=== PATIENT | male | born 1975 | race Two or more races ===

== ENCOUNTER 2020-10-20 17:38 | Inpatient (IN) | payer OTHER ==
[~2020-10-20] VITALS: Ht 170.2 cm; Wt 70.9 kg
--- NOTE | 2020-10-20 17:57 | NUR ---
PT PLACED ON ALL ROOM MONITORING. 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 PULSE OX 90% ON 2LITERS VIA NC, INCREASED TO 3LITERS. RA SAT PER [facility] 88%. PT REPORTS OF COUGH AND ABD PAIN. PER PAPERWORK FROM JACK, PT WITH SCROTAL EDEMA AND TENDERNSS, MALODOROUS LESIONS/EXCORCIATIONS. LAW ENFORCEMENT, THREE OFFICERS AT BS. OFFICERS TO REMOVE SHACKLES TO ALLOW GOWN AND ABILITY TO PROVIDE UA.
[2020-10-20] MEDS ORDERED: SODIUM CHLORIDE 0.9% 1,000ML IVBOLUS ONE ×2 (18:30→20:30)
--- NOTE | 2020-10-20 18:39 | NUR ---
PT STATES TO ERP, HERE FOR TROUBLE BREATHING. ERP NOTIFIED OF OTHER REPORTED SX. 2ND IV BY ED MEDIC, BC X 1 DRAWN WITH START. 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 CALL LIGHT WITHIN REACH.
--- NOTE | 2020-10-20 18:45 | NUR ---
PINK SEPSIS SHEET STARTED.
[2020-10-20 18:51] LABS: BASOPHILS % (AUTO) 0 % (0-1); EOSINOPHILS % (AUTO) 0 % (1-7); LYMPHOCYTES % (AUTO) 6 % (22-44); MEAN CORPUSCULAR HEMOGLOBIN 29.4 pg (27.5-34.5); MEAN CORPUSCULAR HGB CONC 33.6 g/dL (33.2-36.2); MEAN PLATELET VOLUME 8.6 fL (7.4-10.4); MONOCYTES % (AUTO) 9 % (2-9); NEUTROPHILS % (AUTO) 85 % (42-75); PLATELET COUNT 365 x10^3/uL (130-400); RED BLOOD COUNT 3.62 x10^6/uL (4.38-5.82); RED CELL DISTRIBUTION WIDTH 14.3 % (9.4-14.8)
[2020-10-20] MEDS ORDERED: SODIUM CHLORIDE FLUSH 10ML SYR IVF ONE (19:00)
[2020-10-20 19:03] LABS: ALANINE AMINOTRANSFERASE 16 U/L (12-78); ALBUMIN 1.6 g/dL (3.4-5.0); ANION GAP 8 mmol/L (5-15); CALCIUM 7.4 mg/dL (8.5-10.1); CHLORIDE 104 mmol/L (98-107); CREATININE 1.17 mg/dL (0.7-1.3)
[2020-10-20 19:05] LABS: ALKALINE PHOSPHATASE 18 U/L (45-117); BILIRUBIN,TOTAL 0.6 mg/dL (0.2-1.0); TOTAL PROTEIN 7.8 g/dL (6.4-8.2)
--- NOTE | 2020-10-20 19:14 | NUR ---
REPORT TO ALFONSO, TRANSFER OF CARE AT THIS TIME.
[2020-10-20] MEDS ORDERED: AZITHROMYCIN 500 MG in SODIUM CHLORIDE 0.9% 250 ML IV ONE (20:00)
[2020-10-20] MEDS ORDERED: CEFTRIAXONE 2 GM in DEXTROSE 5% 50 ML IVPB ONE (20:00)
[2020-10-20] MEDS ORDERED: DOXYCYCLINE 100 MG in DEXTROSE 5% 250 ML IV ONE (20:30)
[2020-10-20] MEDS ORDERED: OXYcodone IR 5MG TABLET PO PRN (22:00)
[2020-10-20] MEDS ORDERED: VANCOMYCIN PER PHARMACY MC PRN (22:00)
[2020-10-20] MEDS ORDERED: ACETAMINOPHEN 325 MG TABLET PO PRN (22:00)
[2020-10-20] MEDS ORDERED: hydrALAzine 20 MG/ML, 1ML IVPush PRN (22:00)
[2020-10-20] MEDS ORDERED: MELATONIN 5 MG TABLET PO PRN (22:00)
[2020-10-20] MEDS ORDERED: ONDANSETRON 2MG/ML, 2ML IVPush PRN (22:00)
[2020-10-20] MEDS ORDERED: TEMAZEPAM 15 MG CAPSULE PO PRN (22:00)
[2020-10-20] MEDS ORDERED: BISACODYL 10 MG SUPP PR PRN (22:00)
[2020-10-20] MEDS ORDERED: LORazepam 2 MG/ML, 1ML IVPush PRN (22:00)
[2020-10-20] MEDS ORDERED: MEROPENEM IV SCH (22:00)
[2020-10-20] MEDS ORDERED: POLYETHYLENE GLYCOL 17 GM PACKET PO PRN (22:00)
[2020-10-20] MEDS ORDERED: DOCUSATE 100 MG CAPSULE PO PRN (22:00)
[2020-10-20] MEDS ORDERED: VANCOMYCIN 1,600 MG in SODIUM CHLORIDE 0.9% 250 ML IV ONE (22:30)
[2020-10-20] MEDS ORDERED: PHARMACOKINETIC MONITORING MC PRN (22:30)
[2020-10-20] MEDS ORDERED: PHARMACOKINETIC CONSULTATION MC ONE (22:30)
[2020-10-20 22:35] VITALS: BP 92/61
[2020-10-20] MEDS: SODIUM CHLORIDE 0.9% 1,000 ML IV SCH (22:58)
[2020-10-20] MEDS: ENOXAPARIN 40 MG/0.4 ML SQ SCH (22:59)
[2020-10-20 23:37] LABS: TROPONIN I < 0.015 ng/mL (0.000-0.045)
[2020-10-21] MEDS: MEROPENEM 1 GM in SODIUM CHLORIDE 0.9% 100 ML IV SCH ×4 (00:17→23:47)
[2020-10-21] MEDS: DEXAMETHASONE 4 MG/ML, 1ML IVPush SCH ×2 (00:39→08:01)
[2020-10-21 02:07] LABS: AMPHETAMINE SCREEN, URINE Negative (Negative); BARBITURATE SCREEN, URINE Negative (Negative); BENZODIAZEPINE SCREEN, URINE Negative (Negative); CANNABINOID SCREEN, URINE Negative (Negative); COCAINE SCREEN, URINE Negative (Negative); METHADONE SCREEN, URINE Negative (Negative); OPIATE SCREEN, URINE Negative (Negative)
[2020-10-21 02:09] LABS: MICROSCOPIC INDICATED
[2020-10-21 03:55] VITALS: BP 94/54
[2020-10-21 05:37] LABS: BASOPHILS % (AUTO) 0 % (0-1); EOSINOPHILS % (AUTO) 0 % (1-7); LYMPHOCYTES % (AUTO) 3 % (22-44); MEAN CORPUSCULAR HEMOGLOBIN 29.4 pg (27.5-34.5); MEAN CORPUSCULAR HGB CONC 33.1 g/dL (33.2-36.2); MEAN PLATELET VOLUME 8.4 fL (7.4-10.4); MONOCYTES % (AUTO) 4 % (2-9); NEUTROPHILS % (AUTO) 93 % (42-75); PLATELET COUNT 270 x10^3/uL (130-400); RED BLOOD COUNT 3.34 x10^6/uL (4.38-5.82); RED CELL DISTRIBUTION WIDTH 14.2 % (9.4-14.8)
[2020-10-21 05:47] LABS: ANION GAP 7 mmol/L (5-15); CALCIUM 7.4 mg/dL (8.5-10.1); CHLORIDE 107 mmol/L (98-107); CREATININE 0.87 mg/dL (0.7-1.3)
[2020-10-21 05:51] LABS: TROPONIN I 0.016 ng/mL (0.000-0.045)
[2020-10-21] MEDS: ASCORBIC ACID 500 MG TABLET PO SCH ×2 (08:00→15:48)
[2020-10-21] MEDS: FAMOTIDINE 20 MG TABLET PO SCH ×2 (08:01→21:36)
[2020-10-21] MEDS: SODIUM CHLORIDE 0.9% 1,000 ML IV SCH ×2 (08:01→15:48)
[2020-10-21] MEDS: CHOLECALCIFEROL 5,000u TAB PO SCH (08:01)
[2020-10-21 08:18] VITALS: BP 91/53
[2020-10-21 08:41] VITALS: BP 171/66
[2020-10-21] MEDS ORDERED: DOXYCYCLINE 100 MG in DEXTROSE 5% 250 ML IV SCH (09:00)
[2020-10-21] MEDS ORDERED: ICN cefTRIAXONE 2 MG in SYRINGE 1 EA IV SCH (09:00)
[2020-10-21] MEDS ORDERED: ZINC SULFATE 220 MG CAPSULE PO SCH (09:00)
[2020-10-21] MEDS: AZITHROMYCIN 500 MG TABLET PO SCH (12:09)
[2020-10-21] MEDS: VANCOMYCIN 1,300 MG in SODIUM CHLORIDE 0.9% 250 ML IV SCH ×2 (12:09→22:31)
[2020-10-21 12:53] VITALS: BP 92/55
[2020-10-21] MEDS: SULFAMETH./TRIMETHOPRIM DS 800MG/160MG TABLET PO SCH ×3 (15:00→21:36)
[2020-10-21 20:21] VITALS: BP 97/62
[2020-10-21] MEDS: ENOXAPARIN 40 MG/0.4 ML SQ SCH (21:37)
[2020-10-22 00:26] VITALS: BP 98/63
[2020-10-22] MEDS: SODIUM CHLORIDE 0.9% 1,000 ML IV SCH (02:27)
[2020-10-22 06:22] LABS: CHLORIDE 112 mmol/L (98-107)
[2020-10-22 06:29] LABS: ANION GAP 5 mmol/L (5-15); BASOPHILS % (AUTO) 0 % (0-1); CALCIUM 7.6 mg/dL (8.5-10.1); CREATININE 0.69 mg/dL (0.7-1.3); EOSINOPHILS % (AUTO) 0 % (1-7); LYMPHOCYTES % (AUTO) 4 % (22-44); MEAN CORPUSCULAR HEMOGLOBIN 29.3 pg (27.5-34.5); MEAN CORPUSCULAR HGB CONC 32.6 g/dL (33.2-36.2); MEAN PLATELET VOLUME 8.2 fL (7.4-10.4); MONOCYTES % (AUTO) 6 % (2-9); NEUTROPHILS % (AUTO) 91 % (42-75); PLATELET COUNT 291 x10^3/uL (130-400); RED BLOOD COUNT 2.97 x10^6/uL (4.38-5.82); RED CELL DISTRIBUTION WIDTH 14.3 % (9.4-14.8)
[2020-10-22 06:30] LABS: ALANINE AMINOTRANSFERASE 14 U/L (12-78); ALBUMIN 1.2 g/dL (3.4-5.0); ALKALINE PHOSPHATASE 19 U/L (45-117); BILIRUBIN,TOTAL 0.2 mg/dL (0.2-1.0); TOTAL PROTEIN 5.9 g/dL (6.4-8.2)
[2020-10-22 06:56] VITALS: BP 105/67
[2020-10-22] MEDS: FAMOTIDINE 20 MG TABLET PO SCH ×2 (08:28→21:17)
[2020-10-22] MEDS: CHOLECALCIFEROL 5,000u TAB PO SCH (08:28)
[2020-10-22] MEDS: AZITHROMYCIN 500 MG TABLET PO SCH (08:28)
[2020-10-22] MEDS: SULFAMETH./TRIMETHOPRIM DS 800MG/160MG TABLET PO SCH ×3 (08:28→21:17)
[2020-10-22] MEDS: MEROPENEM 1 GM in SODIUM CHLORIDE 0.9% 100 ML IV SCH ×2 (08:29→16:14)
[2020-10-22 15:00] VITALS: BP 112/66
[2020-10-22 18:35] VITALS: BP 108/62
[2020-10-22] MEDS: ENOXAPARIN 40 MG/0.4 ML SQ SCH (21:17)
[2020-10-23] MEDS: MEROPENEM 1 GM in SODIUM CHLORIDE 0.9% 100 ML IV SCH ×3 (00:33→16:34)
[2020-10-23 01:37] VITALS: BP 113/68
[2020-10-23 06:04] LABS: BASOPHILS % (AUTO) 0 % (0-1); EOSINOPHILS % (AUTO) 0 % (1-7); LYMPHOCYTES % (AUTO) 7 % (22-44); MEAN CORPUSCULAR HGB CONC 33.8 g/dL (33.2-36.2); MEAN PLATELET VOLUME 7.5 fL (7.4-10.4); MONOCYTES % (AUTO) 7 % (2-9); NEUTROPHILS % (AUTO) 87 % (42-75); PLATELET COUNT 326 x10^3/uL (130-400); RED CELL DISTRIBUTION WIDTH 14.4 % (9.4-14.8)
[2020-10-23 06:14] LABS: ANION GAP 6 mmol/L (5-15); CALCIUM 7.8 mg/dL (8.5-10.1); CHLORIDE 111 mmol/L (98-107); CREATININE 0.85 mg/dL (0.7-1.3)
[2020-10-23 07:23] VITALS: BP 132/65
[2020-10-23] MEDS: SULFAMETH./TRIMETHOPRIM DS 800MG/160MG TABLET PO SCH ×3 (07:57→21:38)
[2020-10-23] MEDS: FAMOTIDINE 20 MG TABLET PO SCH ×2 (07:57→21:38)
[2020-10-23] MEDS: AZITHROMYCIN 500 MG TABLET PO SCH (07:57)
[2020-10-23] MEDS: CHOLECALCIFEROL 5,000u TAB PO SCH (07:58)
[2020-10-23 08:02] VITALS: BP 122/70
[2020-10-23] MEDS ORDERED: FUROSEMIDE 40 MG/4 ML IV ONE (09:30)
[2020-10-23 14:51] VITALS: BP 101/56
[2020-10-23 18:41] VITALS: BP 109/64
[2020-10-23] MEDS: ENOXAPARIN 40 MG/0.4 ML SQ SCH (21:38)
[2020-10-24 00:21] VITALS: BP 93/59
[2020-10-24] MEDS: MEROPENEM 1 GM in SODIUM CHLORIDE 0.9% 100 ML IV SCH ×3 (00:26→16:12)
[2020-10-24] MEDS ORDERED: ALBUTEROL SULFATE 2.5MG/0.5ML ONE (05:00)
[2020-10-24] MEDS ORDERED: SODIUM CHLORIDE INHALATION 7%, 4 ML NPPB ONE (05:00)
[2020-10-24 05:37] LABS: BASOPHILS % (AUTO) 0 % (0-1); EOSINOPHILS % (AUTO) 0 % (1-7); LYMPHOCYTES % (AUTO) 7 % (22-44); MEAN CORPUSCULAR HEMOGLOBIN 29.5 pg (27.5-34.5); MEAN CORPUSCULAR HGB CONC 33.5 g/dL (33.2-36.2); MEAN PLATELET VOLUME 7.7 fL (7.4-10.4); MONOCYTES % (AUTO) 3 % (2-9); NEUTROPHILS % (AUTO) 91 % (42-75); PLATELET COUNT 321 x10^3/uL (130-400); RED BLOOD COUNT 3.31 x10^6/uL (4.38-5.82); RED CELL DISTRIBUTION WIDTH 14.8 % (9.4-14.8)
[2020-10-24 05:49] LABS: ANION GAP 7 mmol/L (5-15); CHLORIDE 106 mmol/L (98-107)
[2020-10-24 05:52] LABS: CREATININE 0.68 mg/dL (0.7-1.3)
[2020-10-24] MEDS ORDERED: FUROSEMIDE 20 MG/2 ML IV ONE (07:00)
[2020-10-24] MEDS ORDERED: POTASSIUM CHLORIDE 20 MEQ TAB.ER.PRT PO ONE (07:00)
[2020-10-24] MEDS: FAMOTIDINE 20 MG TABLET PO SCH ×2 (07:57→20:50)
[2020-10-24] MEDS: AZITHROMYCIN 500 MG TABLET PO SCH (07:58)
[2020-10-24] MEDS: SULFAMETH./TRIMETHOPRIM DS 800MG/160MG TABLET PO SCH (07:59)
[2020-10-24] MEDS: CHOLECALCIFEROL 5,000u TAB PO SCH (08:00)
[2020-10-24 08:14] VITALS: BP 96/60
[2020-10-24 14:05] VITALS: BP 95/59
[2020-10-24] MEDS: SULFAMETH./TRIMETHOPRIM 20 ML in DEXTROSE 5% 500 ML IV SCH ×2 (17:31→23:38)
[2020-10-24 20:47] VITALS: BP 103/63
[2020-10-24] MEDS: ENOXAPARIN 40 MG/0.4 ML SQ SCH (20:50)
[2020-10-25] VITALS: BP 108/62
[2020-10-25] MEDS: MEROPENEM 1 GM in SODIUM CHLORIDE 0.9% 100 ML IV SCH ×3 (00:38→16:34)
[2020-10-25 05:17] LABS: BASOPHILS % (AUTO) 0 % (0-1); EOSINOPHILS % (AUTO) 0 % (1-7); LYMPHOCYTES % (AUTO) 4 % (22-44); MEAN CORPUSCULAR HEMOGLOBIN 29.8 pg (27.5-34.5); MEAN CORPUSCULAR HGB CONC 33.7 g/dL (33.2-36.2); MEAN PLATELET VOLUME 7.5 fL (7.4-10.4); MONOCYTES % (AUTO) 2 % (2-9); NEUTROPHILS % (AUTO) 94 % (42-75); PLATELET COUNT 362 x10^3/uL (130-400); RED BLOOD COUNT 3.15 x10^6/uL (4.38-5.82); RED CELL DISTRIBUTION WIDTH 14.5 % (9.4-14.8)
[2020-10-25] MEDS: SULFAMETH./TRIMETHOPRIM 20 ML in DEXTROSE 5% 500 ML IV SCH ×3 (05:18→20:03)
[2020-10-25 05:20] LABS: ANION GAP 4 mmol/L (5-15); CALCIUM 8.3 mg/dL (8.5-10.1); CHLORIDE 107 mmol/L (98-107); CREATININE 0.71 mg/dL (0.7-1.3)
[2020-10-25 06:14] VITALS: BP 99/58
[2020-10-25] MEDS: FAMOTIDINE 20 MG TABLET PO SCH ×2 (08:28→20:03)
[2020-10-25] MEDS: CHOLECALCIFEROL 5,000u TAB PO SCH (08:28)
[2020-10-25] MEDS: AZITHROMYCIN 500 MG TABLET PO SCH (08:29)
[2020-10-25 15:22] VITALS: BP 95/57
[2020-10-25 19:30] VITALS: BP 98/64
[2020-10-25] MEDS: ENOXAPARIN 40 MG/0.4 ML SQ SCH (22:04)
[2020-10-26] MEDS: MEROPENEM 1 GM in SODIUM CHLORIDE 0.9% 100 ML IV SCH ×3 (00:21→17:07)
[2020-10-26 01:10] VITALS: BP 100/64
[2020-10-26] MEDS: SULFAMETH./TRIMETHOPRIM 20 ML in DEXTROSE 5% 500 ML IV SCH ×4 (02:26→22:12)
[2020-10-26] MEDS: FAMOTIDINE 20 MG TABLET PO SCH ×2 (09:05→22:11)
[2020-10-26] MEDS: CHOLECALCIFEROL 5,000u TAB PO SCH (09:05)
[2020-10-26] MEDS: AZITHROMYCIN 500 MG TABLET PO SCH (09:05)
[2020-10-26 11:03] VITALS: BP 102/57
[2020-10-26 15:00] VITALS: BP 110/65
[2020-10-26 20:02] VITALS: BP 101/65
[2020-10-26] MEDS: NYSTATIN 500,000 UNITS/5 ML UDC PO SCH (22:09)
[2020-10-26] MEDS: ENOXAPARIN 40 MG/0.4 ML SQ SCH (22:10)
[2020-10-27] MEDS: MEROPENEM 1 GM in SODIUM CHLORIDE 0.9% 100 ML IV SCH ×3 (01:07→16:20)
[2020-10-27 01:25] VITALS: BP 107/58
[2020-10-27] MEDS: NYSTATIN 500,000 UNITS/5 ML UDC PO SCH ×4 (04:06→21:34)
[2020-10-27] MEDS: SULFAMETH./TRIMETHOPRIM 20 ML in DEXTROSE 5% 500 ML IV SCH ×4 (04:06→23:35)
[2020-10-27 07:36] VITALS: BP 109/67
[2020-10-27] MEDS: CHOLECALCIFEROL 5,000u TAB PO SCH (08:34)
[2020-10-27] MEDS: FAMOTIDINE 20 MG TABLET PO SCH ×2 (08:34→21:34)
[2020-10-27] MEDS: AZITHROMYCIN 500 MG TABLET PO SCH (08:34)
[2020-10-27 14:39] VITALS: BP 97/69
[2020-10-27 20:05] VITALS: BP 111/74
[2020-10-27] MEDS: ENOXAPARIN 40 MG/0.4 ML SQ SCH (21:34)
[2020-10-28] MEDS: MEROPENEM 1 GM in SODIUM CHLORIDE 0.9% 100 ML IV SCH ×3 (01:19→16:20)
[2020-10-28 02:46] VITALS: BP 100/59
[2020-10-28] MEDS: NYSTATIN 500,000 UNITS/5 ML UDC PO SCH ×4 (04:28→22:07)
[2020-10-28] MEDS: SULFAMETH./TRIMETHOPRIM 20 ML in DEXTROSE 5% 500 ML IV SCH ×4 (05:22→23:13)
[2020-10-28 07:20] VITALS: BP 106/69
[2020-10-28] MEDS: FAMOTIDINE 20 MG TABLET PO SCH ×2 (08:47→22:07)
[2020-10-28] MEDS: CHOLECALCIFEROL 5,000u TAB PO SCH (08:47)
[2020-10-28 12:36] VITALS: BP 104/63
[2020-10-28] MEDS: BICTEGRAV/EMTRICIT/TENOFOV ALA TAB PO SCH (12:38)
[2020-10-28 13:20] VITALS: BP 113/69
[2020-10-28 20:55] VITALS: BP 102/67
[2020-10-28] MEDS: ENOXAPARIN 40 MG/0.4 ML SQ SCH (22:08)
[2020-10-29 00:57] VITALS: BP 106/65
[2020-10-29] MEDS: MEROPENEM 1 GM in SODIUM CHLORIDE 0.9% 100 ML IV SCH ×3 (01:06→16:36)
[2020-10-29] MEDS: NYSTATIN 500,000 UNITS/5 ML UDC PO SCH ×4 (04:31→21:28)
[2020-10-29] MEDS: SULFAMETH./TRIMETHOPRIM 20 ML in DEXTROSE 5% 500 ML IV SCH ×2 (05:06→11:20)
[2020-10-29 05:57] LABS: BASOPHILS % (AUTO) 0 % (0-1); EOSINOPHILS % (AUTO) 0 % (1-7); LYMPHOCYTES % (AUTO) 4 % (22-44); MEAN CORPUSCULAR HEMOGLOBIN 29.6 pg (27.5-34.5); MEAN CORPUSCULAR HGB CONC 33.3 g/dL (33.2-36.2); MONOCYTES % (AUTO) 3 % (2-9); NEUTROPHILS % (AUTO) 93 % (42-75); PLATELET COUNT 416 x10^3/uL (130-400); RED BLOOD COUNT 3.23 x10^6/uL (4.38-5.82); RED CELL DISTRIBUTION WIDTH 14.6 % (9.4-14.8)
[2020-10-29 06:08] LABS: ALBUMIN 1.9 g/dL (3.4-5.0); ANION GAP 5 mmol/L (5-15); CALCIUM 8.4 mg/dL (8.5-10.1); CHLORIDE 105 mmol/L (98-107)
[2020-10-29 06:12] LABS: ALANINE AMINOTRANSFERASE 61 U/L (12-78); ALKALINE PHOSPHATASE 48 U/L (45-117); BILIRUBIN,TOTAL 0.1 mg/dL (0.2-1.0); CREATININE 0.84 mg/dL (0.7-1.3); TOTAL PROTEIN 6.8 g/dL (6.4-8.2)
[2020-10-29 07:05] VITALS: BP 103/73
[2020-10-29] MEDS: BICTEGRAV/EMTRICIT/TENOFOV ALA TAB PO SCH (08:42)
[2020-10-29] MEDS: FAMOTIDINE 20 MG TABLET PO SCH ×2 (08:42→21:28)
[2020-10-29] MEDS: CHOLECALCIFEROL 5,000u TAB PO SCH (08:42)
[2020-10-29 13:46] VITALS: BP 120/73
[2020-10-29] MEDS: SULFAMETH./TRIMETHOPRIM DS 800MG/160MG TABLET PO SCH (16:36)
[2020-10-29 20:33] VITALS: BP 117/71
[2020-10-29] MEDS: ENOXAPARIN 40 MG/0.4 ML SQ SCH (21:28)
[2020-10-30] MEDS: SULFAMETH./TRIMETHOPRIM DS 800MG/160MG TABLET PO SCH ×3 (01:22→18:05)
[2020-10-30] MEDS: MEROPENEM 1 GM in SODIUM CHLORIDE 0.9% 100 ML IV SCH ×2 (01:22→10:20)
[2020-10-30 01:27] VITALS: BP 103/63
[2020-10-30] MEDS: NYSTATIN 500,000 UNITS/5 ML UDC PO SCH ×4 (04:21→21:24)
[2020-10-30 06:36] VITALS: BP 95/58
[2020-10-30] MEDS ORDERED: AZITHROMYCIN 500 MG TABLET PO SCH (09:00)
[2020-10-30] MEDS: CHOLECALCIFEROL 5,000u TAB PO SCH (10:15)
[2020-10-30] MEDS: FAMOTIDINE 20 MG TABLET PO SCH ×2 (10:15→21:25)
[2020-10-30] MEDS: BICTEGRAV/EMTRICIT/TENOFOV ALA TAB PO SCH (10:20)
[2020-10-30 12:46] VITALS: BP 101/65
[2020-10-30] MEDS ORDERED: MEROPENEM 1 GM in SODIUM CHLORIDE 0.9% 100 ML IV SCH (14:30)
[2020-10-30 19:20] VITALS: BP 103/65
[2020-10-30] MEDS: ENOXAPARIN 40 MG/0.4 ML SQ SCH (21:21)
[2020-10-31] MEDS: SULFAMETH./TRIMETHOPRIM DS 800MG/160MG TABLET PO SCH ×3 (01:12→18:07)
[2020-10-31 01:47] VITALS: BP 104/66
[2020-10-31] MEDS: NYSTATIN 500,000 UNITS/5 ML UDC PO SCH ×3 (04:17→18:07)
[2020-10-31 06:50] VITALS: BP 101/70
[2020-10-31] MEDS: CHOLECALCIFEROL 5,000u TAB PO SCH (09:41)
[2020-10-31] MEDS: FAMOTIDINE 20 MG TABLET PO SCH ×2 (09:42→20:44)
[2020-10-31 18:09] VITALS: BP 119/72
[2020-10-31 18:40] VITALS: BP 112/71
[2020-10-31] MEDS: ENOXAPARIN 40 MG/0.4 ML SQ SCH (20:41)
[2020-10-31] MEDS: GUAIFENESIN ER 600 MG TABLET PO SCH (20:43)
[2020-11-01] MEDS: NYSTATIN 500,000 UNITS/5 ML UDC PO SCH ×3 (00:14→12:00)
[2020-11-01 00:58] VITALS: BP 106/72
[2020-11-01] MEDS: SULFAMETH./TRIMETHOPRIM DS 800MG/160MG TABLET PO SCH ×2 (01:05→08:39)
[2020-11-01 07:28] VITALS: BP 109/74
[2020-11-01] MEDS: CHOLECALCIFEROL 5,000u TAB PO SCH (08:39)
[2020-11-01] MEDS: FAMOTIDINE 20 MG TABLET PO SCH (08:39)
[2020-11-01] MEDS: GUAIFENESIN ER 600 MG TABLET PO SCH (08:39)
[2020-11-01 12:00] VITALS: BP 109/75
[2020-11-01] MEDS ORDERED: GUAI600T31 PO (13:54)
[2020-11-01] MEDS ORDERED: PRED20TA PO (13:54)
[2020-11-01] MEDS ORDERED: AZIT250T PO (13:54)
[2020-11-01] MEDS ORDERED: NYST1000 PO (13:54)
[2020-11-01] MEDS ORDERED: SULF-23 PO ×2 (13:54)
== END 2020-11-01 17:13 | disposition home or self-care (01) | DRG 974 ==
LOC: ED 19:45 → EDIP 21:28 → 4WST 22:35 → 3N 10-26 11:02
PROVIDERS: ADMIT Internal Medicine; ATTEND Internal Medicine
DX: A41.9 Sepsis, unspecified organism (principal); E43 Unspecified severe protein-calorie malnutrition; B20 Human immunodeficiency virus [HIV] disease; B59 Pneumocystosis; J15.9 Unspecified bacterial pneumonia; J96.01 Acute respiratory failure with hypoxia; B37.0 Candidal stomatitis; K56.7 Ileus, unspecified; D63.8 Anemia in other chronic diseases classified elsewhere; E16.2 Hypoglycemia, unspecified; K40.90 Unilateral inguinal hernia, without obstruction or gangrene, not specified as recurrent; N34.2 Other urethritis; N43.3 Hydrocele, unspecified; N45.2 Orchitis; N49.2 Inflammatory disorders of scrotum; Z20.822 Contact with and (suspected) exposure to COVID-19; R94.31 Abnormal electrocardiogram [ECG] [EKG]; R53.81 Other malaise; Z68.24 Body mass index [BMI] 24.0-24.9, adult; Z59.0 Homelessness; Z79.899 Other long term (current) drug therapy; Z88.0 Allergy status to penicillin
CPT/HCPCS: 36415; 36600; 71045; 71046; 71260; 74177; 76870; 80048; 80053; 80074; 80307; 81001; 82105; 82803; 82962; 83605; 83615; 83735; 84100; 84145; 84484; 84703; 85025; 86361; 86592; 86631; 86632; 86635; 86701; 86702; 86738; 87040; 87070; 87077; 87205; 87281; 87449; 87491; 87535; 87536; 87591; 87798; 87806; 93005; 93306; 96365; 99291; G0378; J0456; J0696; J1100; J1650; J1940; J2185; J3370; J7060; U0005; G0475; J7030; J7050; J7512; U0003